=== PATIENT | female | born 1965 | race Caucasian/White ===

== ENCOUNTER 2017-08-12 11:02 | Emergency (ER) | payer BC ==
[~2017-08-12] VITALS: Ht 154.9 cm; Wt 63.6 kg
[~2017-08-12 11:02] MED LIST: DIPH-423 PO
[2017-08-12 11:06] VITALS: BP 174/88
[2017-08-12] MEDS ORDERED: PRED20TA PO (11:10)
[2017-08-12] MEDS ORDERED: ALBU8HFA PO (11:10)
[2017-08-12] MEDS ORDERED: AZIT-57 PO (11:10)
== END 2017-08-12 11:42 | disposition home or self-care (01) ==
LOC: ER 11:02
DX: J20.9 Acute bronchitis, unspecified (principal); F17.200 Nicotine dependence, unspecified, uncomplicated; I10 Essential (primary) hypertension; Z88.6 Allergy status to analgesic agent
CPT/HCPCS: 99283

== ENCOUNTER 2017-09-14 08:14 | Emergency (ER) | payer BC ==
[~2017-09-14] VITALS: Ht 152.4 cm; Wt 64.0 kg
[2017-09-14 09:32] LABS: BASOPHILS # (AUTO) 0.1 X10'3 (0-0.2); BASOPHILS % (AUTO) 0.7 % (0-1); EOSINOPHILS # (AUTO) 0.2 X10'3 (0-0.9); EOSINOPHILS % (AUTO) 1.1 % (0-6); HEMATOCRIT 45.6 % (35.0-45.0); HEMOGLOBIN 16.3 g/dl (12.0-16.0); LYMPHOCYTES # (AUTO) 1.7 X10'3 (1.1-4.8); LYMPHOCYTES % (AUTO) 11.2 % (21-51); MEAN CORPUSCULAR HEMOGLOBIN 33.6 PG (27.0-31.0); MEAN CORPUSCULAR HGB CONC 35.8 % (33.0-36.5); MEAN PLATELET VOLUME 7.7 FL (7.4-10.4); MONOCYTES # (AUTO) 0.6 X10'3 (0-0.9); MONOCYTES % (AUTO) 4.1 % (2-12); NEUTROPHILS # (AUTO) 12.4 X10'3 (1.8-7.7); NEUTROPHILS % (AUTO) 82.9 % (42-75); PLATELET COUNT 252 X10'3 (140-440); RED BLOOD COUNT 4.85 X10'6 (4.20-5.60); RED CELL DISTRIBUTION WIDTH 12.4 % (11.5-14.5)
[2017-09-14 09:50] LABS: ALANINE AMINOTRANSFERASE 23 U/L (12-78); ALBUMIN 3.7 G/DL (3.4-5.0); ALKALINE PHOSPHATASE 105 IU/L (46-116); ANION GAP 9 (8-16); ASPARTATE AMINO TRANSFERASE 23 U/L (10-37); BILIRUBIN,TOTAL 0.7 MG/DL (0.1-1.0); BLOOD UREA NITROGEN 15 MG/DL (7-18); BUN/CREATININE RATIO 15.6 (6.6-38.0); CALCIUM 9.5 MG/DL (8.5-10.1); CHLORIDE 103 MMOL/L (99-107); CREATININE 0.96 MG/DL (0.40-0.90); GLUCOSE 98 MG/DL (70-104); POTASSIUM 3.9 MMOL/L (3.5-5.1); SODIUM 140 MMOL/L (135-145); TOTAL CARBON DIOXIDE 27.9 MMOL/L (24-32); TOTAL PROTEIN 7.4 G/DL (6.4-8.2); eGFR 61 ML/MIN
[2017-09-14] MEDS ORDERED: ipratropium/albuterol 3ml nebule NEB ONE (10:20)
[2017-09-14 10:32] LABS: EOSINOPHILS % (MANUAL) 1 % (0-6); LARGE PLATELETS FEW; LYMPHOCYTES % (MANUAL) 13 % (21-51); MONOCYTES % (MANUAL) 4 % (2-12); NEUTROPHILS % (MANUAL) 82 % (42-75); PLATELET ESTIMATE NORMAL; TOTAL CELLS COUNTED 100
[2017-09-14 10:33] LABS: TOXIC VACUOLATION 1+
[2017-09-14] MEDS ORDERED: GUAI1TBM19 PO (11:35)
[2017-09-14] MEDS ORDERED: PRED50TA PO (11:35)
[2017-09-14] MEDS ORDERED: BENZ-16 PO (11:35)
[2017-09-14] MEDS ORDERED: AZIT-57 PO (11:35)
[2017-09-14 11:46] VITALS: BP 177/87
== END 2017-09-14 11:48 | disposition home or self-care (01) ==
LOC: ER 08:14
DX: J44.1 Chronic obstructive pulmonary disease with (acute) exacerbation (principal); R05 Cough; F17.200 Nicotine dependence, unspecified, uncomplicated; I10 Essential (primary) hypertension; Z79.899 Other long term (current) drug therapy; Z88.6 Allergy status to analgesic agent; Z88.5 Allergy status to narcotic agent
CPT/HCPCS: 36415; 71046; 80053; 83605; 84145; 84484; 85025; 87040; 93005; 94640; 94760; 99285

== ENCOUNTER 2017-10-12 11:08 | Emergency (ER) | payer BC, OTHER ==
[~2017-10-12] VITALS: Ht 154.9 cm; Wt 51.7 kg
[~2017-10-12 11:08] MED LIST changes: +BENZ-16 PO; +GUAI1TBM19 PO; +PRED50TA PO
[2017-10-12 11:15] VITALS: BP 154/107
[2017-10-12] MEDS ORDERED: TRAM50TA2 PO (11:33)
== END 2017-10-12 11:44 | disposition home or self-care (01) ==
LOC: ER 11:08
DX: S20.211A Contusion of right front wall of thorax, initial encounter (principal); I10 Essential (primary) hypertension; F17.200 Nicotine dependence, unspecified, uncomplicated; Z88.8 Allergy status to other drugs, medicaments and biological substances; Z88.5 Allergy status to narcotic agent; Z79.899 Other long term (current) drug therapy; Z60.2 Problems related to living alone; W18.39XA Other fall on same level, initial encounter; Y93.89 Activity, other specified; Y92.89 Other specified places as the place of occurrence of the external cause; Y99.8 Other external cause status
CPT/HCPCS: 71046; 99284

== ENCOUNTER 2019-06-23 20:02 | Emergency (ER) | payer MEDICAID, OTHER ==
[~2019-06-23] VITALS: Ht 154.9 cm; Wt 68.9 kg
[~2019-06-23 20:02] MED LIST changes: -BENZ-16 PO
[2019-06-23 21:07] LABS: BASOPHILS # (AUTO) 0.1 X10'3 (0-0.2); BASOPHILS % (AUTO) 0.5 % (0-1); EOSINOPHILS # (AUTO) 0.3 X10'3 (0-0.9); EOSINOPHILS % (AUTO) 2.9 % (0-6); HEMATOCRIT 40.6 % (35.0-45.0); HEMOGLOBIN 14.1 g/dl (12.0-16.0); LYMPHOCYTES # (AUTO) 2.8 X10'3 (1.1-4.8); LYMPHOCYTES % (AUTO) 23.4 % (21-51); MEAN CORPUSCULAR HEMOGLOBIN 31.6 PG (27.0-31.0); MEAN CORPUSCULAR HGB CONC 34.8 g/dL (33.0-36.5); MEAN CORPUSCULAR VOLUME 90.9 FL (78-98); MEAN PLATELET VOLUME 7.7 FL (7.4-10.4); MONOCYTES # (AUTO) 0.7 X10'3 (0-0.9); MONOCYTES % (AUTO) 5.6 % (2-12); NEUTROPHILS % (AUTO) 67.6 % (42-75); PLATELET COUNT 307 X10'3 (140-440); RED BLOOD COUNT 4.46 X10'6 (4.20-5.60); RED CELL DISTRIBUTION WIDTH 12.4 % (11.5-14.5); WHITE BLOOD COUNT 11.8 X10'3 (4.5-11.0)
[2019-06-23 21:23] LABS: ALANINE AMINOTRANSFERASE 24 U/L (12-78); ALBUMIN 3.6 G/DL (3.4-5.0); ALBUMIN/GLOBULIN RATIO 1.2 (1.1-1.5); ALKALINE PHOSPHATASE 103 IU/L (46-116); ANION GAP 9 (8-16); ASPARTATE AMINO TRANSFERASE 15 U/L (10-37); BILIRUBIN,TOTAL 0.2 MG/DL (0.1-1.0); BLOOD UREA NITROGEN 14 MG/DL (7-18); BUN/CREATININE RATIO 14.3 (6.6-38.0); CALCIUM 8.8 MG/DL (8.5-10.1); CHLORIDE 103 MMOL/L (99-107); CREATININE 0.98 MG/DL (0.40-0.90); GLUCOSE 107 MG/DL (70-104); POTASSIUM 3.7 MMOL/L (3.5-5.1); SODIUM 137 MMOL/L (135-145); TOTAL CARBON DIOXIDE 25.5 MMOL/L (24-32); TOTAL PROTEIN 6.6 G/DL (6.4-8.2); eGFR 59 ML/MIN
[2019-06-23 21:54] LABS: CLARITY,URINE CLEAR (Clear); COLOR,URINE YELLOW (Yellow); GLUCOSE, URINE NEGATIVE (Neg); KETONES,URINE NEGATIVE (Neg); LEUKOCYTE ESTERASE ,URINE MODERATE (Neg); NITRITES, URINE NEGATIVE (Neg); OCCULT BLOOD,URINE NEGATIVE (Neg); PH,URINE 6.5 (4.8-8.0); PROTEIN,URINE NEGATIVE (Neg); UROBILINOGEN,URINE 0.2 E.U/dL (0.2-1.0)
[2019-06-23 22:01] LABS: BACTERIA,URINE FEW /HPF (Neg); RBC,URINE NONE SEEN /HPF (0-2); SQUAMOUS EPITHELIAL CELL,UR FEW /LPF (FEW); UA COLLECTION TYPE NON-SPECIFIED
[2019-06-23 22:12] VITALS: BP 145/105
[2019-06-23 22:47] LABS: URINE AMPHETAMINE SCREEN NEGATIVE (Neg); URINE BARBITUATE SCREEN NEGATIVE (Neg); URINE BENZODIAZEPINES SCREEN NEGATIVE (Neg); URINE CANNABINOID SCREEN NEGATIVE (Neg); URINE COCAINE SCREEN NEGATIVE (Neg); URINE METHADONE SCREEN NEGATIVE (Neg); URINE OPIATE SCREEN NEGATIVE (Neg); URINE PHENCYCLIDINE SCREEN NEGATIVE (Neg)
== END 2019-06-23 22:14 | disposition left against medical advice (07) ==
LOC: ER 20:02
DX: R07.89 Other chest pain (principal); I10 Essential (primary) hypertension; Z60.2 Problems related to living alone; Z88.6 Allergy status to analgesic agent; Z88.5 Allergy status to narcotic agent; Z79.899 Other long term (current) drug therapy
CPT/HCPCS: 36415; 71045; 80053; 80305; 81001; 84484; 85025; 87088; 93005; 99284

== ENCOUNTER 2019-10-17 21:43 | Emergency (ER) | payer MEDICAID, OTHER ==
[~2019-10-17] VITALS: Ht 154.9 cm; Wt 70.5 kg
[2019-10-17 21:46] VITALS: BP 155/99
[2019-10-17] MEDS ORDERED: ALBU8.5H8 INH (22:14)
[2019-10-17] MEDS ORDERED: PRED20TA PO (22:14)
== END 2019-10-17 22:41 ==
LOC: ER 21:45
DX: J44.1 Chronic obstructive pulmonary disease with (acute) exacerbation (principal); R06.02 Shortness of breath; R05 Cough; I10 Essential (primary) hypertension; Z72.0 Tobacco use; Z60.2 Problems related to living alone; Z88.6 Allergy status to analgesic agent; Z88.8 Allergy status to other drugs, medicaments and biological substances; Z79.899 Other long term (current) drug therapy
CPT/HCPCS: 99283

== ENCOUNTER 2021-11-13 14:28 | Emergency (ER) | payer MEDICAID ==
[~2021-11-13] VITALS: Ht 153 cm; Wt 91.9 kg
[~2021-11-13 14:28] MED LIST changes: +ALBU8.5H17 INH
[2021-11-13 14:37] VITALS: BP 170/112
[2021-11-13] MEDS ORDERED: ketorolac trometh. 30mg/ml inj. IM ONE (15:15)
[2021-11-13] MEDS ORDERED: IBUP-1986 PO (16:08)
== END 2021-11-13 16:20 | disposition home or self-care (01) ==
LOC: ER 14:29
DX: G89.29 Other chronic pain (principal); M54.50 Low back pain, unspecified; J44.9 Chronic obstructive pulmonary disease, unspecified; I10 Essential (primary) hypertension; Z88.6 Allergy status to analgesic agent; Z88.5 Allergy status to narcotic agent; Z79.899 Other long term (current) drug therapy
CPT/HCPCS: 72220; 96372; 99283; J1885

== ENCOUNTER 2023-02-24 11:29 | Emergency (ER) | payer MEDICARE, MEDICAID ==
[~2023-02-24] VITALS: Ht 154.9 cm; Wt 110.0 kg
[~2023-02-24 11:29] MED LIST changes: +IBUP-1986 PO
[2023-02-24 11:41] VITALS: BP 175/92; PULSE 95; RESP 18; TEMP 97.8; O2SAT 95
== END 2023-02-24 13:59 | disposition left against medical advice (07) ==
LOC: ER 11:29
DX: R10.9 Unspecified abdominal pain (principal); Z53.21 Procedure and treatment not carried out due to patient leaving prior to being seen by health care provider
CPT/HCPCS: 99281